=== PATIENT | male | born 1965 | race Caucasian/White ===

== ENCOUNTER 2023-11-27 10:45 | Emergency (ER) | payer OTHER ==
[2023-11-27] MEDS ORDERED: Sodium Chloride 0.9% 10 ML Syringe FLUSH PRN (11:07)
[2023-11-27] MEDS ORDERED: Morphine 4 MG/ML VIAL IVPUSH ONE (11:08)
[2023-11-27] MEDS ORDERED: Sodium Chloride 0.9% 1,000 ML IV SCH (11:15)
[2023-11-27 11:36] LABS: BASOPHILS ABSOLUTE AUTO 0.1 x10-3/uL (0.0-0.3); EOSINOPHILS ABSOLUTE AUTO 0.1 x10-3/uL (0.0-0.6); EOSINOPHILS PERCENT AUTO 0.9 % (0.1-6.8); HEMATOCRIT 41.1 % (38.3-50.1); LYMPHOCYTES ABSOLUTE AUTO 1.4 x10-3/uL (0.5-4.5); MEAN CORPUSCULAR HEMOGLOBIN 35.1 pg (27.0-33.3); MEAN PLATELET VOLUME 6.8 fL (6.7-11.0); MONOCYTES ABSOLUTE AUTO 0.5 x10-3/uL (0.0-1.2); MONOCYTES PERCENT AUTO 9.1 % (5.5-15.2); NEUTROPHILS ABSOLUTE AUTO 3.8 x10-3/uL (1.7-6.9); PLATELET COUNT,PLT 283 x10(3)uL (117-477); RED BLOOD CELL COUNT 3.99 x10(6)uL (3.90-5.90); WHITE BLOOD CELL COUNT,WBC 5.9 x10-3/uL (3.2-10.1)
[2023-11-27 11:43] LABS: BLOOD UREA NITROGEN,BUN 12 mg/dL (7-18); CALCIUM 9.1 mg/dL (8.6-10.2); CARBON DIOXIDE,CO2 27 mmol/L (21-32); CHLORIDE,CL 102 mmol/L (100-110); CREATININE 0.6 mg/dL (0.70-1.30); EST CRCL DRUG DOSING (CG) 126.67 mL/min; ESTIMATED GFR 111 mL/min (>60); GLUCOSE RANDOM 86 mg/dL (80-116); POTASSIUM,K 3.7 mmol/L (3.5-5.3); SODIUM,NA 137 mmol/L (135-145)
[2023-11-27 11:46] LABS: BILIRUBIN,URINE NEGATIVE (NEGATIVE); GLUCOSE,URINE NORMAL (NORMAL); KETONES,URINE NEGATIVE (NEGATIVE); LEUKOCYTE ESTERASE,URINE NEGATIVE (NEGATIVE); NITRITE,URINE NEGATIVE (NEGATIVE); OCCULT BLOOD,URINE NEGATIVE (NEGATIVE); PH,URINE 6.5 (5.0-6.5); PROTEIN,URINE NEGATIVE (NEGATIVE); UROBILINOGEN,URINE NORMAL (NEGATIVE)
[2023-11-27 11:47] LABS: APPEARANCE,URINE CLEAR (CLEAR); COLOR,URINE YELLOW (YELLOW); RBC,URINE 0-5 (0-5); SQUAMOUS EPITHELIAL CELLS,UR RARE (NS,R,O); WBC,URINE 0-5 (0-5)
[2023-11-27 11:49] LABS: A/G RATIO 1.2; ALANINE AMINOTRANSFERASE,ALT 28 U/L (12-36); ALBUMIN 3.6 g/dL (3.2-4.6); ALKALINE PHOSPHATASE 61 IU/L (56-112); AMYLASE 28 U/L (25-115); ASPARTATE AMNIOTRANSFERASE,AST 20 IU/L (5-25); BILIRUBIN TOTAL 0.2 mg/dL (0.1-1.3); PROTEIN TOTAL,TP 6.7 g/dL (6.0-8.0)
[2023-11-27 11:58] LABS: INR 0.92 (1.00-1.24); PROTHROMBIN TIME 9.5 sec (9.0-11.1); PTT,PARTIAL THROMBOPLSTIN TIME 26.3 SECONDS (24.4-33.2)
[2023-11-27] MEDS ORDERED: Iopamidol 755 Mg/ML 100 ML Bottle IV SCH (13:00)
[2023-11-27] MEDS ORDERED: Ketorolac 30 MG/ML SDV IVPUSH ONE (14:07)
== END 2023-11-27 14:15 | disposition home or self-care (01) ==
LOC: FB.ED 10:45
DX: R10.9 Unspecified abdominal pain (principal); F17.210 Nicotine dependence, cigarettes, uncomplicated; Z88.1 Allergy status to other antibiotic agents
CPT/HCPCS: 36415; 74177; 80053; 81001; 82150; 83690; 85025; 85610; 85730; 96361; 96374; 96375; 99284-25; J1885; J2270; J3490; J7030; Q9967

== ENCOUNTER 2025-02-21 10:58 | Emergency (ER) | payer OTHER ==
[2025-02-21 11:37] VITALS: BP 109/76; PULSE 82
== END 2025-02-21 12:02 | disposition home or self-care (01) ==
LOC: FB.ED 10:58
DX: S05.01XA Injury of conjunctiva and corneal abrasion without foreign body, right eye, initial encounter (principal); Z88.1 Allergy status to other antibiotic agents; F17.210 Nicotine dependence, cigarettes, uncomplicated; X58.XXXA Exposure to other specified factors, initial encounter; Y93.89 Activity, other specified
CPT/HCPCS: 99283